=== PATIENT | male | born 1990 | race Caucasian/White ===

== ENCOUNTER 2017-04-11 10:52 | Emergency (ER) | payer SELFPAY ==
[2017-04-11 11:05] VITALS: BP 124/67
--- NOTE | 2017-04-11 11:32 | RAD ---
Indication: Left thumb pain. 3 views of left thumb demonstrates no fracture. No other bone or joint abnormality is noted. IMPRESSION: No fracture of the left thumb is noted.
--- NOTE | 2017-04-11 11:32 | UC ---
Hand/Wrist HPI - HPI Summary HPI Summary: 26 male presents with complaints of left thumb pain after an injury that occurred 5-6 days ago while playing with his kids at the park. States he was going down a slide when he slid and landed on his left thumb causing it to hyperextend and dislocate per patient. States he popped his thumb back in. He since has been icing and taking ibuprofen with minimal relief. States it throbs and is worse with movement. Admits to swelling and bruising. Denies using a brace. Has limited ROM due to pain. Denies wrist or other injuries/complaints. No PMHx. Right hand dominant. Denies numbness/tingling. - History Of Current Complaint Chief Complaint: UCUpperExtremity Stated Complaint: LEFT THUMB INJURY Time Seen by Provider: 04/11/17 11:05 Hx Obtained From: Patient Mechanism Of Injury: hyperextended putting down during fall Onset/Duration: Sudden Onset Severity Initially: Moderate Severity Currently: Moderate Pain Intensity: 4 Pain Scale Used: 0-10 Numeric - at rest, 9 with movement Character Of Pain: Aching, Throbbing Aggravating Factor(s): Movement, Flexion, Extension - MCP joint Alleviating: Rest, Ice Associated Signs And Symptoms: Positive: Swelling, Bruising Related History: Dominant Hand Right - Allergies/Home Medications Allergies/Adverse Reactions: Allergies Allergy/AdvReac Type Severity Reaction Status Date / Time antihistamines Allergy Swelling Uncoded 04/11/17 11:06 Home Medications: Home Medications Ibuprofen TAB* [Motrin TAB* 600 MG] 600 mg PO Q6H PRN 04/11/17 [History Confirmed 04/11/17] PMH/Surg Hx/FS Hx/Imm Hx - Additional Past Medical History Additional PMH: Denies DM, HTN and asthma - Surgical History Surgical History: None Surgery Procedure, Year, and Place: denies - Family History Known Family History: Positive: Cardiac Disease - Social History Alcohol Use: Rare Substance Use Type: Marijuana Smoking Status (MU): Light Every Day Tobacco Smoker Amount Used/How Often: 3 cigs per day - Immunization History Vaccination Up to Date: Yes Review of Systems Constitutional: Negative Skin: Bruising, Other - edema of left thumb Respiratory: Negative Cardiovascular: Negative Motor: Decreased ROM - left thumb Neurovascular: Negative Musculoskeletal: Arthralgia, Decreased ROM - left thumb, Edema, Myalgia Neurological: Negative All Other Systems Reviewed And Are Negative: Yes Physical Exam Triage Information Reviewed: Yes Appearance: Well-Appearing, No Pain Distress, Well-Nourished Vital Signs: Initial Vital Signs Temp 98.8 F 04/11/17 11:01 Pulse 76 04/11/17 11:01 Resp 14 04/11/17 11:01 BP 124/67 04/11/17 11:01 Pulse Ox 98 04/11/17 11:01 Vital Signs Reviewed: Yes Eyes: Positive: Conjunctiva Clear ENT: Positive: Hearing grossly normal Neck: Positive: Supple, Nontender Respiratory: Positive: Chest non-tender, Lungs clear, Normal breath sounds, No respiratory distress, No accessory muscle use. Negative: Respiratory distress, Rhonchi, Wheezing Cardiovascular: Positive: RRR, No Murmur, Pulses Normal - 2+ radial b/l, Brisk Capillary Refill - < 2 second Musculoskeletal: Positive: Strength Limited @ - left thumb due to pain, ROM Limited @ - with flexion and extension and bening of MCP joint of left thumb. Full ROM of PIP of left thumb, wrist, hand and rest of fingers. due to pain. better with passive ROM, Edema @ - left MCP joint, Other: - ecchymosis/ contusion over posterior left thumb. no signs of infection or skin complaints Neurological: Positive: Alert - sensation intact, Muscle Tone Normal Psychological Exam: Normal Skin: Positive: Other - ecchymosis/contusion over posterior left MCP joint of thumb Diagnostics - Radiology left thumb Xray Interpretation: No Acute Changes Radiology Interpretation Completed By: Radiologist Hand/Wrist Course/Dx - Course Course Of Treatment: given naproxen while in office as he has not taken any NSAIDs yet today. thumb spica and x-ray. x-ray negative for fracture. Appears to be suffering from thumb sprain. RICE. follow up PCP or ortho if continue or worsen. Aware of worsening signs and symptoms. - Differential Dx/Diagnosis Differential Diagnosis/HQI/PQRI: Contusion, Dislocation, Fracture, Sprain, Strain, Tendonitis Provider Diagnoses: thumb sprain, left Discharge - Discharge Plan Condition: Stable Disposition: HOME Patient Education Materials: Finger Sprain (ED) Referrals: [facility] [Outside] Tra Jolly MD [Medical Doctor] - Additional Instructions: Continue taking NSAIDs for pain and inflammation only as needed with food. Continue icing 20 minutes on and 20 minutes off multiple times daily. Use thumb brace for the next 7 days for extra support and to allow to heal. Follow up with ortho or PCP if symptoms persist, worsen or new symptoms develop.
[2017-04-11] MEDS ORDERED: Naproxen TAB* 250 MG PO ONE (11:44)
== END 2017-04-11 12:00 | disposition home or self-care (01) ==
LOC: UCCORT 10:52
DX: S63.602A Unspecified sprain of left thumb, initial encounter (principal); X58.XXXA Exposure to other specified factors, initial encounter; Y93.89 Activity, other specified; Y92.830 Public park as the place of occurrence of the external cause; F17.210 Nicotine dependence, cigarettes, uncomplicated
CPT/HCPCS: 99213; A9270-GY; G0463

== ENCOUNTER 2017-09-26 12:20 | Emergency (ER) | payer SELFPAY ==
[2017-09-26 12:33] VITALS: BP 125/69
--- NOTE | 2017-09-26 12:46 | UC ---
Skin Complaint HPI - HPI Summary HPI Summary: Pt presents with rash to groin area and redness to his belly button. 1) He tells me that yesterday he noticed some discomfort in his belly button and started to "poke around". Noticed a little bit of bleeding and a red bump within the crevice. This was moderately painful. Denies fever, chills, hx of abdominal surgery or hernia. He does mention that over the last 3 days he has had loose stools and felt a little nauseous, but he attributes this to his recent "cold" symptoms. Denies abdominal pain, SOB, chest pain, vomiting, dysuria, or hematuria. 2) About a month ago he developed a rash to his left groin which was very itchy and red. He used to wrestle in school and is confident this is a fungal infection. He has been using hydrocortisone cream without relief and the rash has now spread to his right groin as well. - History of Current Complaint Chief Complaint: UCGeneralIllness Time Seen by Provider: 09/26/17 12:46 Stated Complaint: SKIN COMPLAINT/STOMACH ACHE Hx Obtained From: Patient Onset/Duration: Gradual Onset Timing: Constant Onset Severity: Moderate Current Severity: Moderate - Allergy/Home Medications Allergies/Adverse Reactions: Allergies Allergy/AdvReac Type Severity Reaction Status Date / Time antihistamines Allergy Swelling Uncoded 09/26/17 12:33 Review of Systems Constitutional: Negative Skin: Rash - B/l groin, Other - Red spot within the umbilicus Eyes: Negative ENT: Negative Respiratory: Negative Cardiovascular: Negative Gastrointestinal: Nausea, Other - Loose stools Genitourinary: Negative Psychological: Negative All Other Systems Reviewed And Are Negative: Yes PMH/Surg Hx/FS Hx/Imm Hx Previously Healthy: Yes - Surgical History Surgical History: None Surgery Procedure, Year, and Place: denies - Family History Known Family History: Positive: Cardiac Disease - Social History Alcohol Use: Rare Substance Use Type: Marijuana Smoking Status (MU): Light Every Day Tobacco Smoker Amount Used/How Often: 3 cigs per day Cessation Counseling: Counseled 3+Min - 10 Min - Immunization History Most Recent Influenza Vaccination: NEVER Vaccination Up to Date: Yes Physical Exam Triage Information Reviewed: Yes Appearance: Well-Appearing, Well-Nourished Vital Signs: Initial Vital Signs Temp 98.6 F 09/26/17 12:28 Pulse 66 12/06/17 12:28 Resp 18 09/26/17 12:28 BP 125/69 09/26/17 12:28 Pulse Ox 100 09/26/17 12:28 Vital Signs Reviewed: Yes Neck: Positive: Supple, Nontender, No Lymphadenopathy Respiratory: Positive: Chest non-tender, Lungs clear, Normal breath sounds, No respiratory distress, No accessory muscle use Cardiovascular: Positive: RRR, No Murmur, Pulses Normal Abdomen Description: Positive: Nontender, No Organomegaly, Soft. Negative: CVA Tenderness (R), CVA Tenderness (L), Distended, Guarding Bowel Sounds: Positive: Present Skin: Positive: rashes - In the right and left intertriginous regions of the groin there are ~10cm diameter patches of neely and erythematous skin. Scale is demarcated sharply at the periphery of the borders., significant lesion(s) - There is approx a 3mm area of skin erythema within the right side of the umbilicus - resembling an umbilical granuloma of infancy. There is no odor, discharge, or bleeding. The site is mildly TTP. The lesion did not change (was not depressed or expressed) with pressure or with cough or abdominal flexion. Course/Dx - Course Course Of Treatment: Tinea cruris - Ketoconazole cream BID. I was unsure regarding the umbilical lesion/erythema. I asked Dr. Finley to assist me in examining the patient. 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 Pt was advised to monitor the area and return with any increased redness, swelling, drainage, bleeding, or new symptoms. - Differential Diagnoses - Skin Complaint Differential Diagnoses: Drug Rash, Impetigo, Poison Leslie, Scabies, Tinea - Diagnoses Provider Diagnoses: Tinea cruris. Umbilical pain - skin Discharge - Discharge Plan Condition: Stable Disposition: HOME Prescriptions: Ketoconazole (Topical) [Ketoconazole] 2 % TOPICAL BID #1 tube Patient Education Materials: Daniel Menendez (ED) Referrals: No Primary Care Phys,NOPCP [Primary Care Provider] - Additional Instructions: If you develop a fever, SOB, chest pain, new or worsening symptoms - please call your PCP or go to the ED. 1) Use the ketoconazole cream to the area twice a day for at least 3 weeks.
== END 2017-09-26 13:10 | disposition home or self-care (01) ==
LOC: UCCORT 12:20
DX: B35.6 Tinea cruris (principal); R10.33 Periumbilical pain; R19.7 Diarrhea, unspecified; Z71.6 Tobacco abuse counseling; F17.210 Nicotine dependence, cigarettes, uncomplicated
CPT/HCPCS: 99212; G0463

== ENCOUNTER 2017-10-04 11:03 | Emergency (ER) | payer OTHER ==
[2017-10-04 11:39] VITALS: BP 109/76
[2017-10-04] MEDS ORDERED: Ondansetron ODT TAB* 4 MG PO ONE (12:14)
--- NOTE | 2017-10-04 12:52 | UC ---
FLU HPI - HPI Summary HPI Summary: Pt c/o fever, chillls, nausea, vomiting, fatigue generalized malaise X 2 days. - History of Current Complaint Chief Complaint: UCRespiratory Stated Complaint: COUGH VOMITING Time Seen by Provider: 10/04/17 11:58 Hx Obtained From: Patient Onset/Duration: Sudden Onset, Lasting Days, Still Present Severity Currently: Mild Severity Initially: Moderate Associated Signs & Symptoms: Positive: Fever, Myalgia, Cough, Headache, Vomiting - Allergy/Home Medications Allergies/Adverse Reactions: Allergies Allergy/AdvReac Type Severity Reaction Status Date / Time antihistamines Allergy Swelling Uncoded 10/04/17 11:35 PMH/Surg Hx/FS Hx/Imm Hx Previously Healthy: Yes - Surgical History Surgical History: None Surgery Procedure, Year, and Place: denies - Family History Known Family History: Positive: Cardiac Disease - Social History Occupation: Unemployed Lives: With Family Alcohol Use: Rare Substance Use Type: Marijuana Smoking Status (MU): Light Every Day Tobacco Smoker Amount Used/How Often: 3 cigs per day Have You Smoked in the Last Year: Yes - Immunization History Most Recent Influenza Vaccination: Not the Season Vaccination Up to Date: Yes Review of Systems Constitutional: Fever, Chills, Fatigue Skin: Negative Eyes: Negative ENT: Negative Respiratory: Cough Cardiovascular: Negative Gastrointestinal: Vomiting, Nausea Genitourinary: Negative Motor: Negative Neurovascular: Negative Musculoskeletal: Myalgia Neurological: Headache Psychological: Negative Is Patient Immunocompromised?: No All Other Systems Reviewed And Are Negative: Yes Physical Exam Triage Information Reviewed: Yes Appearance: Ill-Appearing Vital Signs: Initial Vital Signs Temp 99.4 F 10/04/17 11:33 Pulse 90 10/04/17 11:33 Resp 18 10/04/17 11:33 BP 109/76 10/04/17 11:33 Pulse Ox 99 10/04/17 11:33 Vital Signs Reviewed: Yes Eye Exam: Normal ENT Exam: Other ENT: Positive: Nasal congestion Dental Exam: Normal Neck exam: Normal Respiratory Exam: Normal Cardiovascular Exam: Normal Abdominal Exam: Normal Musculoskeletal Exam: Normal Neurological Exam: Normal Psychological Exam: Normal Skin Exam: Normal Flu Course/Dx - Differential Dx/Diagnosis Differential Diagnosis/HQI/PQRI: Influenza, Upper Respiratory Infection Provider Diagnoses: Influenza B Discharge - Discharge Plan Condition: Stable Disposition: HOME Prescriptions: Acetaminophen TAB* [Tylenol TAB*] 650 mg PO Q4H PRN #20 tab PRN Reason: Fever Ondansetron [Zofran 8 MG Odt] 8 mg PO Q12HR PRN #15 tab PRN Reason: Nausea Patient Education Materials: Influenza (ED) Forms: *Gen. Provider Communication Referrals: No Primary Care Phys,NOPCP [Primary Care Provider] - If Needed
== END 2017-10-04 12:53 | disposition home or self-care (01) ==
LOC: UCCORT 11:03
DX: J10.1 Influenza due to other identified influenza virus with other respiratory manifestations (principal); F17.210 Nicotine dependence, cigarettes, uncomplicated
CPT/HCPCS: 87502; 99212; A9270-GY; G0463

== ENCOUNTER 2019-10-08 19:58 | Emergency (ER) | payer MEDICAID, OTHER ==
[2019-10-08 20:10] VITALS: BP 126/78
--- NOTE | 2019-10-08 20:30 | UC ---
Skin Complaint HPI - HPI Summary HPI Summary: 29 yo healthy man, does a lot of gym workouts and some MMA fighting, with progressive rash on his buttocks. This was assessed by his primary doctor, cristi cline, and a topical given. He used this for 3 weeks but stopped about 2 weeks ago due to lack of effectivenes. Since then, rash continues to spread. --noted yesterday that he has a tender nodule in the right axilla. - History of Current Complaint Chief Complaint: UCRash Time Seen by Provider: 10/08/19 20:22 Stated Complaint: RASH Hx Obtained From: Patient Onset/Duration: Gradual Onset, Lasting Weeks, Still Present Timing: Constant Onset Severity: Moderate Current Severity: Moderate Pain Intensity: 0 Location: Discrete - covering buttocks. Aggravating Factor(s): Clothing, Touch Alleviating Factor(s): Nothing Associated Signs & Symptoms: Positive: Negative - Allergy/Home Medications Allergies/Adverse Reactions: Allergies Allergy/AdvReac Type Severity Reaction Status Date / Time antihistamines Allergy Swelling Uncoded 10/08/19 20:10 PMH/Surg Hx/FS Hx/Imm Hx Previously Healthy: Yes - Surgical History Surgical History: None Surgery Procedure, Year, and Place: denies - Family History Known Family History: Positive: Cardiac Disease, Diabetes - father (also heavy alcohol intake. - Social History Occupation: Employed Part-time Lives: With Family Alcohol Use: Rare Substance Use Type: Marijuana Substance Use Comment - Amount & Last Used: once a month Smoking Status (MU): Former Smoker Amount Used/How Often: 3 cigs per day Have You Smoked in the Last Year: Yes - Immunization History Most Recent Influenza Vaccination: Not the 2016/2017 Season Vaccination Up to Date: Yes Review of Systems All Other Systems Reviewed And Are Negative: Yes Constitutional: Positive: Negative Skin: Positive: Rash Eyes: Positive: Negative ENT: Positive: Negative Respiratory: Positive: Negative Cardiovascular: Positive: Negative Gastrointestinal: Positive: Negative Genitourinary: Positive: Negative Motor: Positive: Negative Neurovascular: Positive: Negative Musculoskeletal: Positive: Negative Neurological: Positive: Negative Psychological: Positive: Negative Is Patient Immunocompromised?: No Physical Exam Triage Information Reviewed: Yes Appearance: Well-Appearing, No Pain Distress Vital Signs: Initial Vital Signs Temp 97.8 F 10/08/19 20:05 Pulse 76 10/08/19 20:05 Resp 18 10/08/19 20:05 BP 126/78 10/08/19 20:05 Pulse Ox 99 10/08/19 20:05 ENT Exam: Normal ENT: Positive: Pharynx normal Neck: Positive: Supple, Nontender, No Lymphadenopathy Respiratory Exam: Other - right axillary area with 1 x 1.5 cm firm nodule without erythema or pointing consistent with sebaceous cyst. Respiratory: Positive: Lungs clear, Normal breath sounds Cardiovascular: Positive: RRR, No Murmur Musculoskeletal Exam: Normal Neurological Exam: Normal Psychological Exam: Normal Skin Exam: Other - buttocks hyperpigmented over most of their surface, with margin of scale and erythema. Increased follicle inflammation in the pubic area. Course/Dx - Course Course Of Treatment: Dermatophyte infection with hyperpigmentation, likely will need oral antifungal. He is healthy and does not drink alcohol. Will begin ketoconazole with a dermatology referral for evalaution and monitoring. - Differential Diagnoses - Skin Complaint Differential Diagnoses: Tinea - Diagnoses Provider Diagnosis: Tinea corporis Discharge ED - Sign-Out/Discharge Documenting (check all that apply): Patient Departure All imaging exams completed and their final reports reviewed: No Studies - Discharge Plan Condition: Good Disposition: HOME Prescriptions: Ketoconazole 200 mg Tab (Nf) [Ketoconazole] 200 mg PO DAILY #14 tablet Patient Education Materials: Tinea Corporis (ED) Referrals: No Primary Care Phys,NOPCP [Primary Care Provider] - Milly Garibay [Medical Doctor] - Additional Instructions: Begin oral daily ketoconazole for treatement of fungal infection of the skin. Please call Dr. Garibay's office tomorrow and arrange an evaluation in 1 to 2 weeks. DISCONTINUE the medication if you develop any abdominal pain, nausea, change in bowels or additional rash. Ensure that you abstain form alcohol during the course of treatment. IF THE MEDICATION IS NOT COVERED BY INSURANCE, PLEASE SCHEDULE A DERMATOLOGY VISIT. SOMETIMES PRIOR AUTHORIZAION IS NECESSARY, AND WE CANNOT OBTAIN THAT FROM THIS FACILITY. - Billing Disposition and Condition Condition: GOOD Disposition: Home
== END 2019-10-08 20:55 | disposition home or self-care (01) ==
LOC: UCCORT 19:58
DX: B35.4 Tinea corporis (principal); Z87.891 Personal history of nicotine dependence; Z88.8 Allergy status to other drugs, medicaments and biological substances
CPT/HCPCS: 99212; G0463